=== PATIENT | male | born 2000 | race Caucasian/White ===

== ENCOUNTER → 2020-08-31 | Outpatient (CLI) | payer OTHER ==
[~2020-08-31] MED LIST: NAPROSYN500 MG PO
== END ==
LOC: EXRD 14:46
DX: M79.642 Pain in left hand (principal); S69.90XA Unspecified injury of unspecified wrist, hand and finger(s), initial encounter; M79.646 Pain in unspecified finger(s); Y99.0 Civilian activity done for income or pay; M25.649 Stiffness of unspecified hand, not elsewhere classified
CPT/HCPCS: 73120; 73140